=== PATIENT | male | born 1955 | race Caucasian/White ===

== ENCOUNTER 2016-11-17 12:15 | Inpatient (IN) | payer OTHER ==
[~2016-11-17] VITALS: Ht 170.2 cm; Wt 93.0 kg
[2016-11-17] MEDS ORDERED: NITROGLYCERIN OINT 1GM/INCH UDPKT TD STA (13:11)
[2016-11-17] MEDS ORDERED: IPRATROPIUM BROMIDE (0.02%) 0.5MG/2.5ML NEB HHN STA (13:11)
[2016-11-17] MEDS ORDERED: ASPIRIN 81MG TABLET PO STA (13:11)
[2016-11-17 14:30] LABS: HEMOGLOBIN. 8.9 g/dL (14.0-18.0); MEAN CORPUSCULAR HEMOGLOBIN 30.6 pg (28.0-32.0); MEAN CORPUSCULAR VOLUME 89.7 fL (80.0-94.0); MEAN PLATELET VOLUME 6.9 fl (7.4-10.4); PLATELET 334 x1000/uL (130-400)
[2016-11-17 14:39] LABS: INR 1.1; PARTIAL THROMBOPLASTIN TIME 31.6 sec (23.4-31.0); PROTHROMBIN TIME 11.7 sec (9.4-11.6)
[2016-11-17 14:49] LABS: CARBON DIOXIDE 20 mEq/L (21-32); CHLORIDE 105 mEq/L (98-107); CREATINE KINASE 55 IU/L (39-308); TROPONIN I 0.13 ng/mL (0.00-0.04)
[2016-11-17 15:20] LABS: PLATELET ESTIMATE NORMAL
[2016-11-17] MEDS ORDERED: CLONIDINE 0.2MG TABLET PO ONE (15:45)
[2016-11-17] MEDS ORDERED: HYDRALAZINE 20MG/ML VIAL IV ONE (16:00)
[2016-11-17] MEDS ORDERED: LEVOFLOXACIN 750MG PREMIX 150 ML IV ONE (16:00)
[2016-11-17] MEDS ORDERED: IPRATROPIUM BROMIDE (0.02%) 0.5MG/2.5ML NEB HHN ONE (16:00)
[2016-11-17 18:10] VITALS: BP 164/68
[2016-11-17] MEDS ORDERED: ONDANSETRON HCL 4MG/2ML VIAL IV PRN (19:30)
[2016-11-17] MEDS ORDERED: ACETAMINOPHEN 325MG TABLET PO PRN (19:30)
[2016-11-17] MEDS ORDERED: IPRATROPIUM/ALBUTEROL 0.5-3(2.5)MG/3ML NEB INH PRN (19:30)
[2016-11-17] MEDS ORDERED: DOCUSATE SODIUM 100MG CAPSULE PO PRN (19:30)
[2016-11-17] MEDS ORDERED: CLONIDINE 0.1MG TABLET PO PRN (19:30)
[2016-11-17] MEDS ORDERED: MAGNESIUM/ALUMINUM HYDROXIDE/SIMETHICONE 30ML UDC PO PRN (19:30)
[2016-11-17] MEDS ORDERED: HYDROCODONE/ACETAMINOPHEN 5/325MG TABLET PO PRN (19:30)
[2016-11-17 19:45] VITALS: BP 160/74
[2016-11-17 20:00] VITALS: BP 160/74
[2016-11-17] MEDS ORDERED: GLYB5TAB7 PO (20:55)
[2016-11-17] MEDS ORDERED: NIFE30TA94 PO (20:58)
[2016-11-17] MEDS ORDERED: LOSA100T14 PO (20:58)
[2016-11-17] MEDS ORDERED: NIFE60TA7 PO (20:58)
[2016-11-17] MEDS ORDERED: ATOR40TA70 PO (20:58)
[2016-11-17] MEDS ORDERED: OXYC-579 PO (20:59)
[2016-11-17] MEDS ORDERED: DOCU-150 PO (20:59)
[2016-11-17] MEDS ORDERED: EPOETIN ALFA 10000UNITS/ML VIAL SUBCUT SCH ×2 (21:00→23:00)
[2016-11-17] MEDS ORDERED: ATORVASTATIN CALCIUM 40MG TABLET PO SCH (21:15)
[2016-11-18] VITALS: BP 162/68
[2016-11-18 00:37] LABS: CREATINE KINASE MB FRACTION 3.5 ng/mL (0.5-3.6)
[2016-11-18 00:44] LABS: TROPONIN I 0.4 ng/mL (0.00-0.04)
[2016-11-18 04:00] VITALS: BP 187/70
[2016-11-18 08:01] LABS: CREATINE KINASE MB FRACTION 3.1 ng/mL (0.5-3.6)
[2016-11-18 08:06] VITALS: BP 197/86
[2016-11-18 08:09] LABS: TROPONIN I 0.42 ng/mL (0.00-0.04)
[2016-11-18] MEDS ORDERED: GLYBURIDE 5MG TABLET PO SCH (08:10)
[2016-11-18 08:22] LABS: BASOPHILS % 0.5 % (0.0-2.0); EOSINOPHILS % 2.6 % (0.0-5.0); HEMATOCRIT. 24.9 % (42.0-52.0); HEMOGLOBIN. 8.5 g/dL (14.0-18.0); LYMPHOCYTES % 8.8 % (20.0-50.0); MEAN CORPUSCULAR HEMOGLOBIN 30.9 pg (28.0-32.0); MEAN CORPUSCULAR VOLUME 90.1 fL (80.0-94.0); MEAN PLATELET VOLUME 7.1 fl (7.4-10.4); MONOCYTES % 8.4 % (2.0-8.0); NEUTROPHILS % 79.7 % (40.0-76.0); PLATELET 302 x1000/uL (130-400); RED BLOOD CELL COUNT 2.77 mill/uL (4.7-6.1); RED CELL DISTRIBUTION WIDTH 13.6 % (11.6-14.6)
[2016-11-18] MEDS ORDERED: NIFEDIPINE XL 90MG TAB PO SCH (09:00)
[2016-11-18] MEDS ORDERED: LOSARTAN POTASSIUM 100 MG TABLET PO SCH (09:00)
[2016-11-19] MEDS ORDERED: LEVOFLOXACIN 500MG PREMIX 100 ML IV SCH (16:00)
== END 2016-11-18 10:30 | disposition left against medical advice (07) | DRG 291 ==
LOC: ER 13:09 → 7WST 16:49 → EDBEDREQ 16:54 → ENRESERV 17:06
PROVIDERS: ADMIT Internal Medicine; ATTEND Internal Medicine
DX: I13.2 Hypertensive heart and chronic kidney disease with heart failure and with stage 5 chronic kidney disease, or end stage renal disease (principal); I50.43 Acute on chronic combined systolic (congestive) and diastolic (congestive) heart failure; E11.22 Type 2 diabetes mellitus with diabetic chronic kidney disease; E87.70 Fluid overload, unspecified; E87.5 Hyperkalemia; J44.9 Chronic obstructive pulmonary disease, unspecified; D64.9 Anemia, unspecified; F17.210 Nicotine dependence, cigarettes, uncomplicated; Z53.21 Procedure and treatment not carried out due to patient leaving prior to being seen by health care provider; E66.3 Overweight; Z88.0 Allergy status to penicillin; Z88.8 Allergy status to other drugs, medicaments and biological substances; Z68.32 Body mass index [BMI] 32.0-32.9, adult; Z91.15 Patient's noncompliance with renal dialysis; Z99.2 Dependence on renal dialysis
CPT/HCPCS: 36415; 71010; 80048; 80053; 80061; 82550; 82553; 82962; 83605; 83690; 83735; 83880; 84443; 84484; 85025; 85610; 85730; 87040; 93005; 94640; 96365; 99285; J0885; J1956; J7030